=== PATIENT | female | born 1945 | race Caucasian/White ===

== ENCOUNTER 2018-01-24 08:01 | Day surgery (SDC) | payer MEDICARE, OTHER ==
[2018-01-21 14:28] LABS: BASOPHILS # (AUTO) 0.1 X10'3 (0-0.2); BASOPHILS % (AUTO) 0.6 % (0-1); EOSINOPHILS # (AUTO) 0.6 X10'3 (0-0.9); EOSINOPHILS % (AUTO) 5.6 % (0-6); LYMPHOCYTES # (AUTO) 1.4 X10'3 (1.1-4.8); LYMPHOCYTES % (AUTO) 14.2 % (21-51); MEAN CORPUSCULAR HEMOGLOBIN 30.5 PG (27.0-31.0); MEAN CORPUSCULAR HGB CONC 33.5 % (33.0-36.5); MEAN CORPUSCULAR VOLUME 91.2 FL (78-98); MEAN PLATELET VOLUME 8.9 FL (7.4-10.4); MONOCYTES # (AUTO) 0.6 X10'3 (0-0.9); MONOCYTES % (AUTO) 5.7 % (2-12); NEUTROPHILS # (AUTO) 7.4 X10'3 (1.8-7.7); NEUTROPHILS % (AUTO) 73.9 % (42-75); PRE OP HEMATOCRIT 43.3 % (35.0-45.0); PRE OP HEMOGLOBIN 14.5 g/dL (12.0-16.0); PRE OP PLATELET COUNT 329 X10'3 (140-440); RED BLOOD COUNT 4.75 X10'6 (4.20-5.60); RED CELL DISTRIBUTION WIDTH 14.2 % (11.5-14.5)
[2018-01-21 14:45] LABS: ALBUMIN 3.6 G/DL (3.4-5.0); ALKALINE PHOSPHATASE 104 IU/L (46-116); BLOOD UREA NITROGEN 17 MG/DL (7-18); BUN/CREATININE RATIO 23.6 (6.6-38.0); CALCIUM 8.9 MG/DL (8.5-10.1); CHLORIDE 106 MMOL/L (99-107); CREATININE 0.72 MG/DL (0.40-0.90); PRE OP ALT 36 U/L (30-65); PRE OP ANION GAP 10 (8-16); PRE OP AST 21 U/L (10-37); PRE OP BILIRUB, TOTAL 0.7 MG/DL (0.0-1.0); PRE OP GLUCOSE 112 MG/DL (70-104); PRE OP POTASSIUM 3.8 MMOL/L (3.4-5.1); PRE OP SODIUM 142 MMOL/L (135-145); TOTAL PROTEIN 7.1 G/DL (6.4-8.2); eGFR 80 ML/MIN
[2018-01-21 15:01] LABS: PRE OP PROTIME 10.7 SECONDS (9.0-12.0)
[~2018-01-24] VITALS: Ht 165.1 cm; Wt 105.1 kg
[2018-01-24] VITALS (8 sets, daily range): BP systolic 106–144; BP diastolic 66–78
[~2018-01-24 08:01] MED LIST: ATOR10TA87 PO; CALC600T12 PO; CHOL400T32 PO; CITA-278 PO; COU5T PO; COU7.5T PO; DILT120C10 PO; DOCU-20 PO; FERR325T39 PO; LEVO150T PO; LISI2.5T2 PO; LORA-512 PO; METH-360 PO; MULT-1085 PO; MULT-1096 PO; OMEP40CA37 PO; OXYB5TAB29 PO; OXYC-138 PO; ceFAZolin 1,000 MG/D5W 50ML IVPB Premixed bag IV ONE; famotidine 20mg tablet PO ONE; ringers solution, lacted 1,000 ML IV SCH
[2018-01-24] MEDS ORDERED: cefazolin/dext.iso 2gm/100ml 100 ML IV ONE (09:05)
[2018-01-24] MEDS ORDERED: DILT120C10 PO (09:25)
[2018-01-24] MEDS ORDERED: BUPIVAcaine/PF 2.5mg/ml (0.25%) 10ml vial ONE (10:54)
[2018-01-24] MEDS ORDERED: ROPIVAcaine 0.5% (5mg/ml) 30ml vial ONE (11:21)
[2018-01-24] MEDS ORDERED: midazolam 2 mg/2 ml injection ONE (12:03)
[2018-01-24] MEDS ORDERED: fentaNYL/PF 50MCG/1 ML 2ML syringe ONE (12:03)
== END 2018-01-24 13:27 | disposition home or self-care (01) ==
LOC: PAS 08:01
PROVIDERS: ATTEND Orthopaedic Surgery Hand Surgery
DX: M19.041 Primary osteoarthritis, right hand (principal); M65.331 Trigger finger, right middle finger; Z68.39 Body mass index [BMI] 39.0-39.9, adult; K21.9 Gastro-esophageal reflux disease without esophagitis; E03.9 Hypothyroidism, unspecified; E11.9 Type 2 diabetes mellitus without complications; M19.90 Unspecified osteoarthritis, unspecified site; Z87.440 Personal history of urinary (tract) infections; Z87.442 Personal history of urinary calculi; I10 Essential (primary) hypertension; I48.91 Unspecified atrial fibrillation; Z87.891 Personal history of nicotine dependence; Z88.0 Allergy status to penicillin; Z88.2 Allergy status to sulfonamides; Z98.890 Other specified postprocedural states
CPT/HCPCS: 26055; 26531; 36415; 80053; 82948; 85025; 85610; 85730; A6222; A6449; J0690; J2250; J2795; J3010; L8630; A7000; J3490; J7120

== ENCOUNTER 2018-04-09 04:01 | Emergency (ER) | payer MEDICARE, OTHER ==
[~2018-04-09] VITALS: Ht 162.6 cm; Wt 87.3 kg
[~2018-04-09 04:01] MED LIST changes: -ceFAZolin 1,000 MG/D5W 50ML IVPB Premixed bag IV ONE; -famotidine 20mg tablet PO ONE; -ringers solution, lacted 1,000 ML IV SCH
[2018-04-09] MEDS ORDERED: LIDOcaine 1.5% w/epinephrine 1:200,000 5ml ampul IJ ONE (04:45)
[2018-04-09] MEDS ORDERED: TETanus/Pertussis (Acell)/Diphther VAC/PF (Tdap-Adult) 0.5ml syringe IM ONE (04:45)
--- NOTE | 2018-04-09 04:48 | NUR ---
PER MD BYRD PT CLEARED OF TRAUMA STATUS.
[2018-04-09] MEDS ORDERED: LIDOcaine 1% w/epiNEPHrine 1:200,000 30ml vial IJ ONE (04:50)
[2018-04-09 05:30] VITALS: BP 129/61
== END 2018-04-09 05:31 | disposition home or self-care (01) ==
LOC: ER 04:01
DX: S01.81XA Laceration without foreign body of other part of head, initial encounter (principal); I48.91 Unspecified atrial fibrillation; M19.90 Unspecified osteoarthritis, unspecified site; Z98.890 Other specified postprocedural states; Z88.5 Allergy status to narcotic agent; Z88.0 Allergy status to penicillin; Z88.2 Allergy status to sulfonamides; Z79.899 Other long term (current) drug therapy; Z79.01 Long term (current) use of anticoagulants; W18.09XA Striking against other object with subsequent fall, initial encounter; Y93.89 Activity, other specified; Y92.89 Other specified places as the place of occurrence of the external cause; Y99.9 Unspecified external cause status
CPT/HCPCS: 12011; 70450; 72125; 90471; 90715; 99284; J3490

== ENCOUNTER 2019-07-11 22:55 | Emergency (ER) | payer MEDICARE, OTHER ==
[~2019-07-11] VITALS: Ht 165.1 cm; Wt 77.2 kg
[~2019-07-11 22:55] MED LIST changes: -CITA-278 PO; +CITA20TA28 PO; +OMEP40CA13 PO; -OMEP40CA37 PO
[2019-07-11 23:01] VITALS: BP 145/75
[2019-07-11] MEDS ORDERED: LIDOcaine/epinephrine/tetracaine TOPICAL sol 3 ML syringe TOP ONE (23:05)
== END 2019-07-12 00:01 | disposition home or self-care (01) ==
LOC: ER 22:55
DX: S60.445A External constriction of left ring finger, initial encounter (principal); I48.91 Unspecified atrial fibrillation; E11.9 Type 2 diabetes mellitus without complications; M19.90 Unspecified osteoarthritis, unspecified site; Z98.890 Other specified postprocedural states; Z79.01 Long term (current) use of anticoagulants; Z79.899 Other long term (current) drug therapy; Z88.5 Allergy status to narcotic agent; Z88.0 Allergy status to penicillin; Z88.2 Allergy status to sulfonamides; X58.XXXA Exposure to other specified factors, initial encounter; Y93.89 Activity, other specified; Y92.89 Other specified places as the place of occurrence of the external cause; Y99.9 Unspecified external cause status
CPT/HCPCS: 99283

== ENCOUNTER 2021-12-01 06:38 | Day surgery (SDC) | payer MEDICARE, OTHER ==
[2021-12-01] VITALS (9 sets, daily range): BP systolic 117–134; BP diastolic 56–98
[~2021-12-01] VITALS: Ht 165.1 cm; Wt 77.9 kg
[~2021-12-01 06:38] MED LIST changes: -CALC600T12 PO; +CALC600T35 PO; -COU5T PO; -DOCU-20 PO; +DOCU-348 PO; +LISI2.5T14 PO; -LISI2.5T2 PO; -MULT-1096 PO; +MULT-1166 PO; -OMEP40CA13 PO; +OMEP40CA21 PO; +WARF-113 PO
[2021-12-01] MEDS ORDERED: normal saline 1,000 ML IV SCH (07:00)
[2021-12-01] MEDS ORDERED: diphenhydrAMINE 25mg capsule PO PRN (07:00)
[2021-12-01] MEDS ORDERED: METF-438 (07:11)
[2021-12-01] MEDS ORDERED: LAN0.125T (07:11)
[2021-12-01] MEDS ORDERED: AMIT10TA6 PO (07:11)
[2021-12-01] MEDS ORDERED: LEVO137T2 (07:11)
[2021-12-01 07:40] LABS: BASOPHILS # (AUTO) 0.1 X10'3 (0-0.2); EOSINOPHILS # (AUTO) 0.4 X10'3 (0-0.9); EOSINOPHILS % (AUTO) 4.7 % (0-6); HEMATOCRIT 43.8 % (35.0-45.0); HEMOGLOBIN 14.7 g/dl (12.0-16.0); LYMPHOCYTES % (AUTO) 22.5 % (21-51); MEAN CORPUSCULAR HEMOGLOBIN 30.8 PG (27.0-31.0); MEAN CORPUSCULAR HGB CONC 33.6 g/dL (33.0-36.5); MEAN CORPUSCULAR VOLUME 91.6 FL (78-98); MEAN PLATELET VOLUME 8.9 FL (7.4-10.4); MONOCYTES # (AUTO) 0.5 X10'3 (0-0.9); MONOCYTES % (AUTO) 6.1 % (2-12); NEUTROPHILS # (AUTO) 5.8 X10'3 (1.8-7.7); NEUTROPHILS % (AUTO) 65.7 % (42-75); PLATELET COUNT 311 X10'3 (140-440); RED BLOOD COUNT 4.78 X10'6 (4.20-5.60); WHITE BLOOD COUNT 8.8 X10'3 (4.5-11.0)
[2021-12-01 07:49] LABS: ALBUMIN 4.2 G/DL (3.4-5.0); ANION GAP 15 (8-16); BLOOD UREA NITROGEN 20 MG/DL (7-18); BUN/CREATININE RATIO 26.7 (6.6-38.0); CHLORIDE 104 MMOL/L (99-107); CREATININE 0.75 MG/DL (0.40-0.90); GLUCOSE 124 MG/DL (70-104); MAGNESIUM 1.4 MG/DL (1.5-2.4); POTASSIUM 3.9 MMOL/L (3.5-5.1); SODIUM 144 MMOL/L (135-145); TOTAL CARBON DIOXIDE 25.5 MMOL/L (24-32); eGFR 75 ML/MIN
[2021-12-01] MEDS ORDERED: nitroGLYCERIN-Tridil 50MG/D5W 250 ML IV ONE (08:50)
[2021-12-01] MEDS ORDERED: verapamil 2.5 mg/ml inj IV ONE (08:50)
[2021-12-01] MEDS ORDERED: heparin 1,000unit/ml 10ml vial 10 ML ONE (08:51)
[2021-12-01] MEDS ORDERED: midazolam 1 mg/ML 2ml injection ONE ×3 (08:51→10:00)
[2021-12-01] MEDS ORDERED: LIDOcaine 1%/PF 5ML 10 MG/ML VIAL ONE (08:51)
[2021-12-01] MEDS ORDERED: fentaNYL/PF 50MCG/1 ML 2ML syringe ONE (08:51)
[2021-12-01] MEDS ORDERED: iohexol 350MG/ML 100ml bottle IV ONE ×3 (08:51→09:45)
[2021-12-01] MEDS ORDERED: normal saline 1000ml 1,000 ML IV SCH (11:50)
[2021-12-01] MEDS ORDERED: proCHLORperazine 10 MG/2 ml inj IV PRN (11:50)
[2021-12-01] MEDS ORDERED: ondansetron/PF 4mg/2ml inj IV PRN (11:50)
[2021-12-01] MEDS ORDERED: HYDROcodone/acetaminophen 5mg/325mg tablet PO PRN (12:15)
[2021-12-01] MEDS ORDERED: HYDROcodone/acetaminophen 10/325mg tab PO PRN (12:15)
[2021-12-01] MEDS ORDERED: ketorolac trometh. 30mg/ml inj. IV ONE (12:20)
[2021-12-01] MEDS ORDERED: oxyCODONE SR 10mg (sust. release) tab PO ONE (12:20)
[2021-12-01] MEDS ORDERED: ketorolac tromethamine 15mg/ml inj. IV ONE (12:30)
== END 2021-12-01 14:15 | disposition home or self-care (01) ==
LOC: SSTAY O 06:38
PROVIDERS: ATTEND Internal Medicine Cardiovascular Disease
DX: R07.89 Other chest pain (principal); I35.0 Nonrheumatic aortic (valve) stenosis; I27.20 Pulmonary hypertension, unspecified; I48.91 Unspecified atrial fibrillation; E78.5 Hyperlipidemia, unspecified; I10 Essential (primary) hypertension; E11.9 Type 2 diabetes mellitus without complications; Z79.899 Other long term (current) drug therapy; Z98.890 Other specified postprocedural states; Z87.891 Personal history of nicotine dependence
CPT/HCPCS: 36415; 80048; 82948; 83735; 85025; 85610; 93005; 93460; 99152; 99153; A6258; C1751; C1760; C1769; C1894; J1644; J1885; J2250; J3010; J3490; J7030; Q0163; Q9967; A4620; A5120

== ENCOUNTER 2022-01-03 09:57 | Outpatient (CLI) | payer MEDICARE, OTHER ==
[~2022-01-03] VITALS: Ht 165.1 cm; Wt 77.1 kg
[~2022-01-03 09:57] MED LIST changes: +AMIT10TA6 PO; -COU7.5T PO; -DOCU-348 PO; +LAN0.125T; +LEVO137T2; -LEVO150T PO; +METF-438; -METH-360 PO; -MULT-1166 PO; -OXYC-138 PO; -WARF-113 PO
[2022-01-03] MEDS ORDERED: IODIXANOL 320 MG/ML INFUS..BTL 100ML IV ONE (10:45)
[2022-01-03 10:53] LABS: BASOPHILS # (AUTO) 0.1 X10'3 (0-0.2); BASOPHILS % (AUTO) 0.7 % (0-1); EOSINOPHILS # (AUTO) 0.4 X10'3 (0-0.9); HEMATOCRIT 39.4 % (35.0-45.0); HEMOGLOBIN 13.3 g/dl (12.0-16.0); LYMPHOCYTES # (AUTO) 1.4 X10'3 (1.1-4.8); MEAN CORPUSCULAR HGB CONC 33.6 g/dL (33.0-36.5); MEAN CORPUSCULAR VOLUME 92.3 FL (78-98); MEAN PLATELET VOLUME 8.7 FL (7.4-10.4); MONOCYTES # (AUTO) 0.5 X10'3 (0-0.9); MONOCYTES % (AUTO) 7.3 % (2-12); NEUTROPHILS # (AUTO) 4.7 X10'3 (1.8-7.7); PLATELET COUNT 265 X10'3 (140-440); RED BLOOD COUNT 4.27 X10'6 (4.20-5.60); RED CELL DISTRIBUTION WIDTH 13.9 % (11.5-14.5); WHITE BLOOD COUNT 7.1 X10'3 (4.5-11.0)
[2022-01-03 11:06] LABS: APTT 27 SECONDS (22-32)
[2022-01-03 11:07] LABS: ALANINE AMINOTRANSFERASE 60 U/L (12-78); ALBUMIN 3.4 G/DL (3.4-5.0); ALBUMIN/GLOBULIN RATIO 1.1 (1.1-1.5); ALKALINE PHOSPHATASE 86 IU/L (46-116); ANION GAP 9 (8-16); ASPARTATE AMINO TRANSFERASE 34 U/L (10-37); BILIRUBIN,TOTAL 0.7 MG/DL (0.1-1.0); BLOOD UREA NITROGEN 20 MG/DL (7-18); BUN/CREATININE RATIO 31.7 (6.6-38.0); CALCIUM 8.7 MG/DL (8.5-10.1); CHLORIDE 104 MMOL/L (99-107); CREATININE 0.63 MG/DL (0.40-0.90); GLUCOSE 169 MG/DL (70-104); POTASSIUM 3.6 MMOL/L (3.5-5.1); SODIUM 139 MMOL/L (135-145); TOTAL CARBON DIOXIDE 26.4 MMOL/L (24-32); TOTAL PROTEIN 6.4 G/DL (6.4-8.2); eGFR > 90 ML/MIN
[2022-01-03] MEDS ORDERED: albuterol 2.5 MG/3 ML nebule NEB PRN (13:00)
[2022-01-03 13:06] LABS: ABG BASE EXCESS -1.8 mmol/L (-2.0-2.0); ABG HCO3 21.6 mmol/L (22.0-26.0); ABG OXYGEN SATURATION 96.5 % (94-97); ABG PCO2 (T) 32.7 mmHg (32.0-45.0); ABG PO2 (T) 94.7 mmHg (75.0-100.0); FCOHb 0.4 % (0.0-3.9); FMetHb 0.3 % (0.0-1.5); FO2Hb 95.8 % (94-97); TOTAL HEMOGLOBIN 13.3 G/dl (12.0-16.0)
== END 2022-01-03 23:59 | disposition home or self-care (01) ==
LOC: RAD 09:57
PROVIDERS: ATTEND Internal Medicine Cardiovascular Disease
DX: I35.0 Nonrheumatic aortic (valve) stenosis (principal); R06.02 Shortness of breath; I65.29 Occlusion and stenosis of unspecified carotid artery; Z79.899 Other long term (current) drug therapy; Z90.49 Acquired absence of other specified parts of digestive tract; K57.30 Diverticulosis of large intestine without perforation or abscess without bleeding; N28.1 Cyst of kidney, acquired; R91.1 Solitary pulmonary nodule; Z98.890 Other specified postprocedural states
CPT/HCPCS: 36415; 36600; 71046; 71275; 74174; 80053; 82803; 85018; 85025; 85610; 85730; 87811; 94060; 94727; 94729; J3490; Q9967; 94760

== ENCOUNTER 2022-02-08 08:16 | Inpatient (IN) | payer MEDICARE, OTHER ==
[2022-02-05 11:30] LABS: BASOPHILS # (AUTO) 0.1 X10'3 (0-0.2); BASOPHILS % (AUTO) 0.6 % (0-1); EOSINOPHILS # (AUTO) 0.4 X10'3 (0-0.9); EOSINOPHILS % (AUTO) 4.5 % (0-6); LYMPHOCYTES # (AUTO) 1.9 X10'3 (1.1-4.8); LYMPHOCYTES % (AUTO) 22.7 % (21-51); MEAN CORPUSCULAR HEMOGLOBIN 30.8 PG (27.0-31.0); MEAN CORPUSCULAR HGB CONC 33.9 g/dL (33.0-36.5); MEAN CORPUSCULAR VOLUME 90.8 FL (78-98); MEAN PLATELET VOLUME 8.3 FL (7.4-10.4); MONOCYTES # (AUTO) 0.7 X10'3 (0-0.9); NEUTROPHILS # (AUTO) 5.4 X10'3 (1.8-7.7); NEUTROPHILS % (AUTO) 64.2 % (42-75); PRE OP HEMATOCRIT 41.7 % (35.0-45.0); PRE OP HEMOGLOBIN 14.1 g/dL (12.0-16.0); PRE OP PLATELET COUNT 297 X10'3 (140-440); RED CELL DISTRIBUTION WIDTH 13.2 % (11.5-14.5)
[2022-02-05 11:33] LABS: HEMOGLOBIN A1C 5.7 % (4.5-6.2)
[2022-02-05 11:39] LABS: PRE OP PROTIME 10.8 SECONDS (9.0-12.0)
[2022-02-05 11:41] LABS: CLARITY,URINE CLOUDY (Clear); COLOR,URINE YELLOW (Yellow); GLUCOSE, URINE 250 mg/dl (Neg); KETONES,URINE TRACE mg/dl (Neg); LEUKOCYTE ESTERASE ,URINE NEGATIVE (Neg); NITRITES, URINE NEGATIVE (Neg); OCCULT BLOOD,URINE NEGATIVE (Neg); PROTEIN,URINE NEGATIVE (Neg); UROBILINOGEN,URINE 0.2 E.U/dL (0.2-1.0)
[2022-02-05 11:47] LABS: UA COLLECTION TYPE CLN CATCH MIDSTREAM
[2022-02-05 11:48] LABS: HYALINE CASTS 0-3 /LPF (NEGATIVE); MUCUS STRANDS MANY /LPF (Neg); SQUAMOUS EPITHELIAL CELL,UR FEW /LPF (FEW)
[2022-02-05 11:51] LABS: BACTERIA,URINE FEW /HPF (Neg); RBC,URINE 0-2 /HPF (0-2); WBC,URINE 0-4 /HPF (0-4)
[2022-02-05 11:52] LABS: ALBUMIN 3.6 G/DL (3.4-5.0); ALBUMIN/GLOBULIN RATIO 1.1 (1.1-1.5); ALKALINE PHOSPHATASE 83 IU/L (46-116); BLOOD UREA NITROGEN 17 MG/DL (7-18); BUN/CREATININE RATIO 25.4 (6.6-38.0); CALCIUM 9.3 MG/DL (8.5-10.1); CHLORIDE 105 MMOL/L (99-107); CREATININE 0.67 MG/DL (0.40-0.90); PRE OP ALT 48 U/L (30-65); PRE OP ANION GAP 8 (8-16); PRE OP AST 34 U/L (10-37); PRE OP BILIRUB, TOTAL 0.7 MG/DL (0.0-1.0); PRE OP GLUCOSE 102 MG/DL (70-104); PRE OP POTASSIUM 3.8 MMOL/L (3.4-5.1); PRE OP SODIUM 140 MMOL/L (135-145); TOTAL CARBON DIOXIDE 26.9 MMOL/L (24-32); TOTAL PROTEIN 6.8 G/DL (6.4-8.2); eGFR 86 ML/MIN
[2022-02-08] VITALS (20 sets, daily range): BP systolic 108–162; BP diastolic 54–82
[~2022-02-08] VITALS: Ht 162.6 cm; Wt 79.0 kg
[~2022-02-08 08:16] MED LIST changes: +ALBU18HF2 PO; +CHOL100046 PO; -CHOL400T32 PO; -CITA20TA28 PO; +DOCU100C40 PO; +ESCI20TA39 PO; +KRILL OIL PO; -LAN0.125T; +LAN0.125T PO; -LEVO137T2; +LEVO137T2 PO; -METF-438; +METF-438 PO; +OXYC10TA47 PO; +REMIFENTANIL (Ultiva) 1 MG VIAL IV ONE; +aspirin 325mg tablet, delayed-release (Ecotrin) PO ONE; +famotidine 20mg tablet PO ONE; +nitroPRUSSIDE (NIPRIDE) (200MCG/ML) 100ML Drip IV SCH; +ondansetron/PF 4mg/2ml inj IV PRN; +protamine sulfate 10mg/ml inj. ONE; +ringers solution, lacted 1,000 ML IV SCH; +vancomycin 1,500 MG in NS 300ml IV soln IV ONE
[2022-02-08] MEDS: phenylephrine inj 50 MG in normal saline 250ml IV solN IV SCH (09:57)
[2022-02-08] MEDS ORDERED: ondansetron/PF 4mg/2ml inj IV PRN ×2 (10:10→12:05)
[2022-02-08] MEDS ORDERED: ringers solution, lacted 1,000 ML IV SCH (10:10)
[2022-02-08] MEDS ORDERED: morphine 2 MG/ML inj. syringe IV PRN (10:10)
[2022-02-08] MEDS ORDERED: meperidine/PF 25mg/ml syringe IV PRN ×3 (10:10)
[2022-02-08] MEDS ORDERED: morphine 4 MG/ML inj SYRINge IV PRN (10:10)
[2022-02-08] MEDS ORDERED: proCHLORperazine 10 MG/2 ml inj IV PRN ×2 (10:10→12:05)
[2022-02-08] MEDS ORDERED: heparin 1,000unit/ml 10ml vial 10 ML ONE (10:31)
[2022-02-08] MEDS ORDERED: propofol inj 20 ML IV ONE (10:31)
[2022-02-08] MEDS ORDERED: midazolam 1 mg/ML 2ml injection ONE (10:31)
[2022-02-08] MEDS ORDERED: heparin 1,000 UNITS/NS 500ml 1,500 ML ONE (10:36)
[2022-02-08] MEDS ORDERED: iohexol 350 MG/ML 50ML vial IV ONE (10:36)
[2022-02-08] MEDS ORDERED: LIDOcaine 1% 30ml preserv. free vial ONE (10:36)
[2022-02-08] MEDS ORDERED: iohexol 350MG/ML 100ml bottle IV ONE (10:36)
[2022-02-08] MEDS ORDERED: albuterol 2.5 MG/3 ML nebule NEB PRN (11:25)
[2022-02-08] MEDS ORDERED: OXYcodone immediate-release 10MG tablet PO PRN (11:25)
[2022-02-08] MEDS ORDERED: docusate sod 100mg capsule PO PRN ×2 (11:25→12:05)
[2022-02-08] MEDS ORDERED: magnesium 4gm in 100ml NS 100 ML IV PRN (12:05)
[2022-02-08] MEDS ORDERED: ALPRAZolam 0.25mg tablet PO PRN (12:05)
[2022-02-08] MEDS ORDERED: potassium Cl 40MEQ/1/2NS 520ml 520 ML IV PRN (12:05)
[2022-02-08] MEDS ORDERED: potassium Cl 40MEQ/270ML bag 250 ML IV PRN (12:05)
[2022-02-08] MEDS ORDERED: acetaminophen 325mg tablet PO PRN (12:05)
[2022-02-08] MEDS ORDERED: potassium Cl 20 mEq SR tablet PO PRN (12:05)
[2022-02-08] MEDS ORDERED: diphenhydrAMINE 25mg capsule PO PRN (12:05)
[2022-02-08] MEDS ORDERED: labetalol 20mg/4ml (5mg/ml) syringe IV PRN (12:05)
[2022-02-08] MEDS ORDERED: pantoprazole 40mg Tablet.DR PO PRN (12:05)
[2022-02-08] MEDS ORDERED: potassium Cl 20mEq/100mL bag 100 ML IV PRN (12:05)
[2022-02-08] MEDS ORDERED: potassium CL 10mEq/100ml bag 100 ML IV PRN (12:05)
[2022-02-08] MEDS ORDERED: hydrALAZINE 20mg/ml inj. IV PRN (12:05)
[2022-02-08] MEDS ORDERED: magnesium 2GM in 50ml NS 50 ML IV PRN (12:05)
--- NOTE | 2022-02-08 12:07 | NUR ---
Received from OR via SURGICAL BED , accompanied by Anesthesiologist ASHISH and report given by Anesthesiolgist. PATIENT [id number] PIV IN LEFT UE RUNNING LR AT 100. DRIPS TAKEN DOWN 1/2 HR FOLLOWING ARRIVAL . BILATERAL GROIN SITES ARE CDI CURRENTLY. DRESSINGS DRY AND PATIENT WITH + DPS BILATERALLY. (NO DRAINAGE TO GROINS AND SOFT TO TOUCH)PATIENT WITH + NEURO CHECKS. PUSH PULLS AND RECORDS MANAGEMENT DIRECTOR ALL STRONG AND EQUAL. TONGUE MIDLINE AND VSS. WARMING MEASURES TAKEN FOR COMFORT. SCDS DONNED TO BED WELL 2 BAGS OF BELONGINGS. Addendum: 02/08/22 at 1242 by Emil Ziegler RN, RN Amended: Links added.
[2022-02-08] MEDS ORDERED: CLOP75TA34 PO (12:52)
--- NOTE | 2022-02-08 13:52 | NUR ---
95 BG POST OP Addendum: 02/08/22 at 1422 by Emil Ziegler RN RN Amended: Links added.
--- NOTE | 2022-02-08 13:57 | NUR ---
CARE OF PATIENT AND REPORT HAS BEEN CALLED. ALL QUESTIONS ANSWERED TO ACCEPTING RN. PATIENT HAS MET ALL CRITERIA FOR TRANSFER TO THE [facility] ORTHO FLOOR. VSS. DRESSINGS INTACT. BED LOW, CALL LIGHT PRESENT AND 2 RAILS UP. RN PRESENT TO ACCEPT CARE OF PATIENT. Addendum: 02/08/22 at 1422 by Emil Ziegler RN RN Amended: Links added.
--- NOTE | 2022-02-08 14:28 | NUR ---
ADDENDUM: NEUROLOGICALLY INTACT. NO DEVIATION IN TONGUE, SMILE SYMMETRICAL AND PUSH PULLS/ CORRECTIONAL SERGEANT ALL EQUAL. PATIENT VOIDED PRIOR TO LEAVING UNIT. GROIN CHECKS STILL BILATERALLY CDI AND SOFT TO TOUCH. PAIN AT 5-10 HOWEVER PATIENT STATES THIS IS HER LEVEL OF COMFORT. Addendum: 02/08/22 at 1432 by Emil Ziegler RN, RN Amended: Links added.
[2022-02-08] MEDS ORDERED: MESSAGE TO PHARMACY PO ONE (15:55)
[2022-02-08] MEDS: normal saline 1000ml 1,000 ML IV SCH ×3 (15:55→22:05)
[2022-02-08] MEDS ORDERED: DEXTROSE 15 GM of carb/4 tabs (each vial/BOTTLE has 4 tablets) PO PRN ×2 (15:55)
[2022-02-08] MEDS ORDERED: insulin Lispro (HumaLOG) vial - multi-dose SQ SCH (15:55)
[2022-02-08] MEDS ORDERED: glucagon, human recombinant 1mg kit SUBCUT PRN (15:55)
[2022-02-08] MEDS ORDERED: dextrose 50%-water 50ml dispensing syringe IV PRN ×2 (15:55)
[2022-02-08] MEDS: oxyCODONE IR 5mg (immed. release) tablet PO PRN (16:14)
[2022-02-08] MEDS: sod chloride 0.9% 10ml flush syringe IV SCH (16:15)
--- NOTE | 2022-02-08 16:40 | NUR ---
Report called to Kelley SALAS. Patient transferred to PCU room 3014A. RN at bedside. All belongings with patient on transfer.
--- NOTE | 2022-02-08 16:40 | NUR ---
Patient in room 3014a. I have received report from Tete SALAS and had the opportunity to ask questions and assume patient care. Pt bilat groin sites DCI with the exception of small area right veinous site. This area outlined. Will continue to monitor. Pt talking on phone. No distress, Call light in reach.
--- NOTE | 2022-02-08 18:15 | NUR ---
Problems reprioritized. Patient report given, questions answered & plan of care reviewed with Akhil SALAS. bedside report completed. Addendum: 02/08/22 at 1823 by Kelley Garrison RN Amended: Links added.
[2022-02-08] MEDS ORDERED: diltiazem SR 60mg capsule (twice daily) PO SCH (21:00)
[2022-02-08] MEDS ORDERED: multivitamins, therapeutics tablet PO SCH (21:00)
[2022-02-08] MEDS ORDERED: insulin glargine (Lantus) pen - multi-dose SQ SCH (21:00)
[2022-02-08] MEDS ORDERED: ESCITALOPRAM OXALATE 5 MG TABLET PO SCH (21:00)
[2022-02-08] MEDS ORDERED: loratadine 10mg tablet PO SCH (21:00)
[2022-02-08] MEDS ORDERED: amitriptyline 10mg tablet PO SCH (21:00)
[2022-02-08] MEDS: vancomycin/NS 1 GM ADD-VANTAGE 250 ML IV SCH (21:39)
[2022-02-08] MEDS: ferrous sulfate 325mg tablet PO SCH (22:06)
--- NOTE | 2022-02-08 22:21 | NUR ---
Pt Blood Sugar is 92 at 2100 PM, does not meet protocol, does not need lantus.
[2022-02-09] MEDS: sod chloride 0.9% 10ml flush syringe IV SCH ×2 (00:31→08:00)
[2022-02-09 02:00] VITALS: BP 115/45
[2022-02-09] MEDS: phenylephrine inj 50 MG in normal saline 250ml IV solN IV SCH (03:07)
--- NOTE | 2022-02-09 04:03 | NUR ---
Pt 2100 BS was 92, this nurse feel not comfort for her blood sugar, it maybe be low, checked it at 03:50 AM, it was 171, continue to closely monitor her glucose.
--- NOTE | 2022-02-09 04:27 | NUR ---
Patient Heart rate is around 50, patient stated at home she took Diltiazem 240 mg bed time, 120 mg day time, current at hospital is on Diltiazem 240 mg PO BID, will let AM nurse notified MD to see if can decrease the AM lakhani from 240 mg to 120 mg to prevent her Heart Rate too low.
[2022-02-09] MEDS: normal saline 1000ml 1,000 ML IV SCH (05:18)
--- NOTE | 2022-02-09 06:22 | NUR ---
Patient in room PCU 3014. I have received report from Akhil SALAS and had the opportunity to ask questions and assume patient care. bedside report completed. Pt sleeping, No distress, Call light in reach. Addendum: 02/09/22 at 0623 by Kelley Garrison RN Amended: Links added.
[2022-02-09 06:39] LABS: BASOPHILS % (AUTO) 0.6 % (0-1); EOSINOPHILS # (AUTO) 0.1 X10'3 (0-0.9); EOSINOPHILS % (AUTO) 2.1 % (0-6); HEMATOCRIT 36.6 % (35.0-45.0); HEMOGLOBIN 12.5 g/dl (12.0-16.0); LYMPHOCYTES # (AUTO) 0.4 X10'3 (1.1-4.8); LYMPHOCYTES % (AUTO) 6.1 % (21-51); MEAN CORPUSCULAR HEMOGLOBIN 31.1 PG (27.0-31.0); MEAN CORPUSCULAR HGB CONC 34.1 g/dL (33.0-36.5); MEAN CORPUSCULAR VOLUME 91.4 FL (78-98); MEAN PLATELET VOLUME 8.3 FL (7.4-10.4); MONOCYTES # (AUTO) 0.4 X10'3 (0-0.9); MONOCYTES % (AUTO) 6.4 % (2-12); NEUTROPHILS # (AUTO) 5.9 X10'3 (1.8-7.7); NEUTROPHILS % (AUTO) 84.8 % (42-75); PLATELET COUNT 172 X10'3 (140-440); RED BLOOD COUNT 4.01 X10'6 (4.20-5.60); RED CELL DISTRIBUTION WIDTH 13.1 % (11.5-14.5); WHITE BLOOD COUNT 6.9 X10'3 (4.5-11.0)
[2022-02-09 06:55] LABS: ALANINE AMINOTRANSFERASE 255 U/L (12-78); ALBUMIN/GLOBULIN RATIO 1.2 (1.1-1.5); ALKALINE PHOSPHATASE 108 IU/L (46-116); ANION GAP 9 (8-16); ASPARTATE AMINO TRANSFERASE 355 U/L (10-37); BILIRUBIN,TOTAL 1.4 MG/DL (0.1-1.0); BLOOD UREA NITROGEN 15 MG/DL (7-18); BUN/CREATININE RATIO 28.3 (6.6-38.0); CALCIUM 8.1 MG/DL (8.5-10.1); CHLORIDE 104 MMOL/L (99-107); CREATININE 0.53 MG/DL (0.40-0.90); GLUCOSE 179 MG/DL (70-104); MAGNESIUM 1.5 MG/DL (1.5-2.4); POTASSIUM 3.7 MMOL/L (3.5-5.1); SODIUM 138 MMOL/L (135-145); TOTAL CARBON DIOXIDE 24.9 MMOL/L (24-32); TOTAL PROTEIN 5.5 G/DL (6.4-8.2); eGFR > 90 ML/MIN
[2022-02-09] MEDS ORDERED: levoTHYROXINE 112mcg tablet PO SCH (07:00)
[2022-02-09] MEDS ORDERED: levoTHYROXINE 25mcg tablet PO SCH (07:00)
[2022-02-09] MEDS ORDERED: KRILL OIL PO SCH (08:00)
[2022-02-09] MEDS ORDERED: diltiazem SR 60mg capsule (twice daily) PO SCH (08:00)
[2022-02-09] MEDS ORDERED: digoxin 125mcg (0.125mg) tablet PO SCH (08:00)
[2022-02-09] MEDS ORDERED: atorvastatin 10mg tablet PO SCH (08:00)
[2022-02-09] MEDS ORDERED: lisinopril 2.5mg tablet PO SCH (08:00)
[2022-02-09] MEDS ORDERED: cholecalciferol (vitamin D3) 1,000 unit (25mcg) tablet PO SCH (08:00)
[2022-02-09] MEDS ORDERED: pantoprazole 40mg Tablet.DR PO SCH (08:00)
[2022-02-09] MEDS ORDERED: clopidogrel 75mg tablet PO SCH (08:00)
[2022-02-09] MEDS ORDERED: calcium carbonate 500mg tablet PO SCH (08:00)
[2022-02-09] MEDS ORDERED: oxybutynin 5mg tablet PO SCH (08:00)
[2022-02-09] MEDS: vancomycin/NS 1 GM ADD-VANTAGE 250 ML IV SCH (08:08)
[2022-02-09] MEDS: ferrous sulfate 325mg tablet PO SCH (08:09)
[2022-02-09] MEDS: oxyCODONE IR 5mg (immed. release) tablet PO PRN (08:22)
--- NOTE | 2022-02-09 11:04 | NUR ---
ambulated Pt 300 ft around unit. pt tolerated well. no new drsg drainage noted.
[2022-02-09 11:41] VITALS: BP 115/52
--- NOTE | 2022-02-09 13:50 | NUR ---
All written and verbal orders for D/C given. All questions answered. Pt states she had all belongings. All medication and appointments reviewed. DRSG removed from left groin site. New DRSG applied to right groin site. Removed pt piv, cannula intact. Pt left hospital via W/C home with family. Addendum: 02/09/22 at 1403 by Kelley Garrison RN Amended: Links added.
== END 2022-02-09 14:23 | disposition home or self-care (01) | DRG 266 ==
LOC: UNDOADMIN 08:16 → PAS IN 08:16 → PCU 3S 16:44
PROVIDERS: ADMIT Internal Medicine Cardiovascular Disease; ATTEND Internal Medicine Cardiovascular Disease
PROC: B41D1ZZ Fluoroscopy of Aorta and Bilateral Lower Extremity Arteries using Low Osmolar Contrast (ICD-10-PCS; 2022-02-08)
PROC: 02RF38Z Replacement of Aortic Valve with Zooplastic Tissue, Percutaneous Approach (ICD-10-PCS; principal; 2022-02-08 10:46)
DX: I35.0 Nonrheumatic aortic (valve) stenosis (principal); Z00.6 Encounter for examination for normal comparison and control in clinical research program; I50.33 Acute on chronic diastolic (congestive) heart failure; E78.5 Hyperlipidemia, unspecified; I11.0 Hypertensive heart disease with heart failure; I48.91 Unspecified atrial fibrillation; Z98.84 Bariatric surgery status
CPT/HCPCS: 33361; 36415; 71045; 71046; 76937; 80053; 81001; 82948; 83036; 83735; 83880; 84443; 85025; 85347; 85610; 85730; 86885; 86900; 86901; 86920; 87081; 93005; 93308; A4618; A6258; A6402; A6449; C1756; C1760; C1769; C1894; G0378; J0360; J1644; J1815; J2175; J2250; J2270; J2370; J2704; J2720; J3370; J3490; J7030; J7040; J7050; J7120; Q9967

== ENCOUNTER 2022-09-23 21:30 | Emergency (ER) | payer MEDICARE, OTHER ==
[~2022-09-23] VITALS: Ht 162.6 cm; Wt 69.1 kg
[~2022-09-23 21:30] MED LIST changes: +CLOP75TA34 PO; -REMIFENTANIL (Ultiva) 1 MG VIAL IV ONE; -aspirin 325mg tablet, delayed-release (Ecotrin) PO ONE; -famotidine 20mg tablet PO ONE; -nitroPRUSSIDE (NIPRIDE) (200MCG/ML) 100ML Drip IV SCH; -ondansetron/PF 4mg/2ml inj IV PRN; -protamine sulfate 10mg/ml inj. ONE; -ringers solution, lacted 1,000 ML IV SCH; -vancomycin 1,500 MG in NS 300ml IV soln IV ONE
[2022-09-23 21:48] LABS: BASOPHILS # (AUTO) 0.1 X10'3 (0-0.2); BASOPHILS % (AUTO) 0.8 % (0-1); EOSINOPHILS # (AUTO) 0.8 X10'3 (0-0.9); EOSINOPHILS % (AUTO) 6.5 % (0-6); HEMOGLOBIN 14.1 g/dl (12.0-16.0); LYMPHOCYTES # (AUTO) 2.4 X10'3 (1.1-4.8); LYMPHOCYTES % (AUTO) 18.8 % (21-51); MEAN CORPUSCULAR HEMOGLOBIN 29.5 PG (27.0-31.0); MEAN CORPUSCULAR HGB CONC 32.9 g/dL (33.0-36.5); MEAN CORPUSCULAR VOLUME 89.9 FL (78-98); MONOCYTES % (AUTO) 7.8 % (2-12); NEUTROPHILS # (AUTO) 8.3 X10'3 (1.8-7.7); NEUTROPHILS % (AUTO) 66.1 % (42-75); PLATELET COUNT 354 X10'3 (140-440); RED BLOOD COUNT 4.78 X10'6 (4.20-5.60); RED CELL DISTRIBUTION WIDTH 14.2 % (11.5-14.5); WHITE BLOOD COUNT 12.6 X10'3 (4.5-11.0)
[2022-09-23] MEDS ORDERED: diltiazem 5mg/ml 5ml inj. IV ONE (21:55)
[2022-09-23 22:05] LABS: ALANINE AMINOTRANSFERASE 42 U/L (12-78); ALBUMIN 3.5 G/DL (3.4-5.0); ALKALINE PHOSPHATASE 85 IU/L (46-116); ANION GAP 14 (8-16); ASPARTATE AMINO TRANSFERASE 32 U/L (10-37); BILIRUBIN,TOTAL 0.4 MG/DL (0.1-1.0); BLOOD UREA NITROGEN 18 MG/DL (7-18); BUN/CREATININE RATIO 22.5 (10.0-20.0); CALCIUM 8.8 MG/DL (8.5-10.1); CHLORIDE 108 MMOL/L (99-107); GLUCOSE 111 MG/DL (70-104); POTASSIUM 3.6 MMOL/L (3.5-5.1); SODIUM 144 MMOL/L (135-145); TOTAL CARBON DIOXIDE 22.2 MMOL/L (24-32); eGFR 70 ML/MIN
[2022-09-24] MEDS ORDERED: diltiazem 5mg/ml 5ml inj. IV ONE ×2 (00:10→03:00)
[2022-09-24 04:45] VITALS: BP 116/57
== END 2022-09-24 05:06 | disposition home or self-care (01) ==
LOC: ER 21:31
DX: I48.20 Chronic atrial fibrillation, unspecified (principal)
CPT/HCPCS: 36415; 71045; 80053; 80162; 83880; 84484; 85025; 93005; 96374; 96376; 99285; J3490; J7030

== ENCOUNTER 2022-12-07 07:57 | Day surgery (SDC) | payer MEDICARE, OTHER ==
[2022-12-07] VITALS (8 sets, daily range): BP systolic 103–118; BP diastolic 53–67; PULSE 72–93; RESP 12–16; TEMP 97.7; O2SAT 95–100
[~2022-12-07] VITALS: Ht 162.6 cm; Wt 66.1 kg
[2022-12-07] MEDS ORDERED: normal saline 1000ml 1,000 ML IV SCH (08:20)
[2022-12-07] MEDS ORDERED: MIDAZolam 1mg/ml 10ml vial IV ONE (08:20)
[2022-12-07] MEDS ORDERED: fentaNYL/PF 50MCG/1 ML 2ML syringe IV ONE (08:20)
[2022-12-07] MEDS ORDERED: METO-395 PO (08:25)
[2022-12-07] MEDS ORDERED: APIX5TAB3 PO (08:25)
[2022-12-07] MEDS ORDERED: ALEN70TA15 PO (08:25)
[2022-12-07] MEDS ORDERED: AMI200T PO (08:25)
[2022-12-07 09:51] LABS: BASOPHILS # (AUTO) 0.1 X10'3 (0-0.2); BASOPHILS % (AUTO) 1.3 % (0-1); EOSINOPHILS # (AUTO) 0.2 X10'3 (0-0.9); EOSINOPHILS % (AUTO) 3.1 % (0-6); HEMATOCRIT 40.3 % (35.0-45.0); HEMOGLOBIN 13.2 g/dl (12.0-16.0); LYMPHOCYTES # (AUTO) 0.9 X10'3 (1.1-4.8); MEAN CORPUSCULAR HEMOGLOBIN 29.6 PG (27.0-31.0); MEAN CORPUSCULAR HGB CONC 32.7 g/dL (33.0-36.5); MEAN CORPUSCULAR VOLUME 90.6 FL (78-98); MEAN PLATELET VOLUME 8.4 FL (7.4-10.4); MONOCYTES # (AUTO) 0.4 X10'3 (0-0.9); MONOCYTES % (AUTO) 5.1 % (2-12); NEUTROPHILS # (AUTO) 6.1 X10'3 (1.8-7.7); NEUTROPHILS % (AUTO) 78.5 % (42-75); PLATELET COUNT 264 X10'3 (140-440); RED BLOOD COUNT 4.45 X10'6 (4.20-5.60); RED CELL DISTRIBUTION WIDTH 15.1 % (11.5-14.5); WHITE BLOOD COUNT 7.7 X10'3 (4.5-11.0)
[2022-12-07 10:00] LABS: PROTHROMBIN TIME 11.2 SECONDS (9.0-12.0)
[2022-12-07 10:02] LABS: ALBUMIN 3.5 G/DL (3.4-5.0); ANION GAP 10 (8-16); BLOOD UREA NITROGEN 25 MG/DL (7-18); BUN/CREATININE RATIO 36.8 (10.0-20.0); CALCIUM 8.8 MG/DL (8.5-10.1); CHLORIDE 105 MMOL/L (99-107); CREATININE 0.68 MG/DL (0.40-0.90); GLUCOSE 104 MG/DL (70-104); MAGNESIUM 1.3 MG/DL (1.5-2.4); POTASSIUM 3.8 MMOL/L (3.5-5.1); SODIUM 140 MMOL/L (135-145); TOTAL CARBON DIOXIDE 24.9 MMOL/L (24-32); eCRCL 61 ML/MIN; eGFR 84 ML/MIN
== END 2022-12-07 13:00 | disposition home or self-care (01) ==
LOC: SSTAY O 07:57
PROVIDERS: ATTEND Internal Medicine Cardiovascular Disease
DX: I48.4 Atypical atrial flutter (principal); E78.5 Hyperlipidemia, unspecified; G89.29 Other chronic pain; E66.9 Obesity, unspecified; Z68.25 Body mass index [BMI] 25.0-25.9, adult; K21.9 Gastro-esophageal reflux disease without esophagitis; F41.9 Anxiety disorder, unspecified; F32.A Depression, unspecified; M19.90 Unspecified osteoarthritis, unspecified site; E03.9 Hypothyroidism, unspecified; D64.9 Anemia, unspecified; E11.22 Type 2 diabetes mellitus with diabetic chronic kidney disease; I12.9 Hypertensive chronic kidney disease with stage 1 through stage 4 chronic kidney disease, or unspecified chronic kidney disease; N18.9 Chronic kidney disease, unspecified; G51.0 Bell's palsy; Z79.899 Other long term (current) drug therapy; Z98.84 Bariatric surgery status; Z88.0 Allergy status to penicillin; Z88.5 Allergy status to narcotic agent; Z88.2 Allergy status to sulfonamides; Z87.440 Personal history of urinary (tract) infections; Z87.01 Personal history of pneumonia (recurrent); Z90.49 Acquired absence of other specified parts of digestive tract; Z96.643 Presence of artificial hip joint, bilateral; Z98.890 Other specified postprocedural states
CPT/HCPCS: 36415; 80048; 82948; 83735; 85025; 85610; 92960; 93005; J2250; J3010; J7030; A4620

== ENCOUNTER 2022-12-08 14:18 | Inpatient (IN) | payer MEDICARE, OTHER ==
[~2022-12-08] VITALS: Ht 162.6 cm; Wt 65.9 kg
[~2022-12-08 14:18] MED LIST changes: -ALBU18HF2 PO; +ALEN70TA15 PO; +AMI200T PO; +APIX5TAB3 PO; -CALC600T35 PO; -CLOP75TA34 PO; -FERR325T39 PO; +METO-395 PO
[2022-12-08 15:37] LABS: BASOPHILS # (AUTO) 0.1 X10'3 (0-0.2); BASOPHILS % (AUTO) 0.7 % (0-1); EOSINOPHILS # (AUTO) 0.3 X10'3 (0-0.9); EOSINOPHILS % (AUTO) 3.2 % (0-6); HEMATOCRIT 37.4 % (35.0-45.0); HEMOGLOBIN 12.4 g/dl (12.0-16.0); LYMPHOCYTES # (AUTO) 1.5 X10'3 (1.1-4.8); LYMPHOCYTES % (AUTO) 15.8 % (21-51); MEAN CORPUSCULAR HEMOGLOBIN 30.3 PG (27.0-31.0); MEAN CORPUSCULAR HGB CONC 33.1 g/dL (33.0-36.5); MEAN CORPUSCULAR VOLUME 91.4 FL (78-98); MEAN PLATELET VOLUME 8.3 FL (7.4-10.4); MONOCYTES # (AUTO) 0.6 X10'3 (0-0.9); NEUTROPHILS # (AUTO) 6.7 X10'3 (1.8-7.7); NEUTROPHILS % (AUTO) 73.3 % (42-75); PLATELET COUNT 262 X10'3 (140-440); RED BLOOD COUNT 4.09 X10'6 (4.20-5.60); RED CELL DISTRIBUTION WIDTH 15.3 % (11.5-14.5); WHITE BLOOD COUNT 9.2 X10'3 (4.5-11.0)
[2022-12-08 15:47] LABS: ALANINE AMINOTRANSFERASE 46 U/L (12-78); ALBUMIN 3.1 G/DL (3.4-5.0); ALBUMIN/GLOBULIN RATIO 1.2 (1.1-1.5); ALKALINE PHOSPHATASE 57 IU/L (46-116); ANION GAP 10 (8-16); ASPARTATE AMINO TRANSFERASE 30 U/L (10-37); BILIRUBIN,TOTAL 0.6 MG/DL (0.1-1.0); BLOOD UREA NITROGEN 22 MG/DL (7-18); CALCIUM 7.8 MG/DL (8.5-10.1); CHLORIDE 107 MMOL/L (99-107); CREATININE 0.71 MG/DL (0.40-0.90); GLUCOSE 98 MG/DL (70-104); POTASSIUM 4.2 MMOL/L (3.5-5.1); SODIUM 140 MMOL/L (135-145); TOTAL CARBON DIOXIDE 23.4 MMOL/L (24-32); TOTAL PROTEIN 5.6 G/DL (6.4-8.2); eCRCL 58 ML/MIN; eGFR 80 ML/MIN
[2022-12-08 15:56] LABS: MAGNESIUM 1.3 MG/DL (1.5-2.4); PRO BRAIN NATRIURETIC PEPTIDE 921 PG/ML (0-450)
[2022-12-08] MEDS ORDERED: magnesium 2GM in 50ml NS 50 ML IV ONE (16:00)
[2022-12-08 16:07] LABS: DIGOXIN 0.7 NG/ML (0.9-1.9)
[2022-12-08] MEDS ORDERED: magnesium hydroxide 30ml (MOM) UD suspension PO PRN (18:25)
[2022-12-08] MEDS ORDERED: magnesium 2GM in 50ml NS 50 ML IV PRN (18:25)
[2022-12-08] MEDS ORDERED: acetaminophen 325mg tablet PO PRN (18:25)
[2022-12-08] MEDS ORDERED: ondansetron/PF 4mg/2ml inj IV PRN (18:25)
[2022-12-08] MEDS ORDERED: mag hydrox/Alum hydrox/simeth 30ml oral suspension PO PRN (18:25)
[2022-12-08] MEDS ORDERED: magnesium Cl slow-release 64mg tablet PO PRN (18:25)
[2022-12-08] MEDS ORDERED: potassium Cl 40MEQ/1/2NS 520ml 520 ML IV PRN (18:25)
[2022-12-08] MEDS ORDERED: potassium Cl 20 mEq SR tablet PO PRN (18:25)
[2022-12-08] MEDS ORDERED: magnesium 4gm in 100ml NS 100 ML IV PRN (18:25)
[2022-12-08] MEDS ORDERED: lisinopril 10 MG tablet PO ONE (18:55)
[2022-12-08 19:12] LABS: BILIRUBIN,URINE NEGATIVE (Neg); GLUCOSE, URINE NEGATIVE (Neg); KETONES,URINE 15 mg/dl (Neg); LEUKOCYTE ESTERASE ,URINE TRACE (Neg); NITRITES, URINE NEGATIVE (Neg); OCCULT BLOOD,URINE NEGATIVE (Neg); PH,URINE 5.5 (4.8-8.0); PROTEIN,URINE NEGATIVE (Neg); UROBILINOGEN,URINE 0.2 E.U/dL (0.2-1.0)
[2022-12-08] MEDS ORDERED: insulin Lispro (HumaLOG) vial - multi-dose SQ SCH (19:15)
[2022-12-08] MEDS ORDERED: glucagon, human recombinant 1mg kit SUBCUT PRN (19:15)
[2022-12-08] MEDS ORDERED: dextrose 50%-water 50ml dispensing syringe IV PRN ×2 (19:15)
[2022-12-08] MEDS ORDERED: DEXTROSE 15 GM of carb/4 tabs (each vial/BOTTLE has 4 tablets) PO PRN ×2 (19:15)
[2022-12-08 19:20] LABS: UA COLLECTION TYPE CLN CATCH MIDSTREAM
[2022-12-08 19:21] LABS: CLARITY,URINE SLIGHTLY CLOUDY (Clear); COLOR,URINE DARK YELLOW (Yellow)
[2022-12-08 19:23] LABS: BACTERIA,URINE 1+ /HPF (Neg); MUCUS STRANDS MODERATE /LPF (Neg); RBC,URINE 0-2 /HPF (0-2); SQUAMOUS EPITHELIAL CELL,UR MODERATE /LPF (FEW); TRANSITIONAL EPI CELLS,URINE FEW /HPF
[2022-12-08 19:38] LABS: THYROID STIMULATING HORMONE 0.97 ulU/ml (0.34-4.50)
[2022-12-08] MEDS: K and/or MAG REPLACEMENT MC SCH (20:00)
[2022-12-08] MEDS: apixaban 5mg tablet PO SCH (20:06)
[2022-12-08] MEDS ORDERED: lisinopril 2.5mg tablet PO ONE (20:35)
[2022-12-08] MEDS: oxybutynin 5mg tablet PO SCH (20:44)
--- NOTE | 2022-12-08 20:44 | NUR ---
Patient is uncomfortable taking lisinopril dose with SBP of 104 and declines administration at this time. Pt also declined taking ditropan stating she takes it in the morning
[2022-12-08 22:30] VITALS: BP 99/55; PULSE 95; RESP 16; TEMP 97.3; O2SAT 95
[2022-12-08] MEDS: insulin glargine (Lantus) pen - multi-dose SQ SCH (23:00)
[2022-12-09] VITALS (9 sets, daily range): BP systolic 94–141; BP diastolic 54–80; PULSE 87–114; RESP 15–22; TEMP 96.8–97.7; O2SAT 94–99
--- NOTE | 2022-12-09 06:27 | NUR ---
Problems reprioritized. Patient report given, questions answered & plan of care reviewed with Annemarie. Addendum: 12/09/22 at 0686 by Jacki Sykes RN Amended: Links added.
--- NOTE | 2022-12-09 07:07 | NUR ---
Patient in room PCU 3028. I have received report from Yany SALAS and had the opportunity to ask questions and assume patient care.
[2022-12-09 07:31] LABS: BASOPHILS # (AUTO) 0.1 X10'3 (0-0.2); BASOPHILS % (AUTO) 0.7 % (0-1); EOSINOPHILS # (AUTO) 0.4 X10'3 (0-0.9); EOSINOPHILS % (AUTO) 5.8 % (0-6); HEMATOCRIT 37.2 % (35.0-45.0); HEMOGLOBIN 12.6 g/dl (12.0-16.0); LYMPHOCYTES % (AUTO) 27.7 % (21-51); MEAN CORPUSCULAR HEMOGLOBIN 30.6 PG (27.0-31.0); MEAN CORPUSCULAR HGB CONC 33.8 g/dL (33.0-36.5); MEAN CORPUSCULAR VOLUME 90.4 FL (78-98); MEAN PLATELET VOLUME 8.9 FL (7.4-10.4); MONOCYTES # (AUTO) 0.5 X10'3 (0-0.9); MONOCYTES % (AUTO) 7.2 % (2-12); NEUTROPHILS # (AUTO) 4.2 X10'3 (1.8-7.7); NEUTROPHILS % (AUTO) 58.6 % (42-75); PLATELET COUNT 230 X10'3 (140-440); RED BLOOD COUNT 4.11 X10'6 (4.20-5.60); RED CELL DISTRIBUTION WIDTH 14.9 % (11.5-14.5); WHITE BLOOD COUNT 7.1 X10'3 (4.5-11.0)
[2022-12-09 07:57] LABS: ALANINE AMINOTRANSFERASE 37 U/L (12-78); ALBUMIN 3.1 G/DL (3.4-5.0); ALBUMIN/GLOBULIN RATIO 1.2 (1.1-1.5); ALKALINE PHOSPHATASE 52 IU/L (46-116); ANION GAP 8 (8-16); ASPARTATE AMINO TRANSFERASE 24 U/L (10-37); BILIRUBIN,TOTAL 0.7 MG/DL (0.1-1.0); BLOOD UREA NITROGEN 19 MG/DL (7-18); BUN/CREATININE RATIO 36.5 (10.0-20.0); CALCIUM 8.2 MG/DL (8.5-10.1); CHLORIDE 108 MMOL/L (99-107); CREATININE 0.52 MG/DL (0.40-0.90); GLUCOSE 91 MG/DL (70-104); MAGNESIUM 1.6 MG/DL (1.5-2.4); POTASSIUM 3.1 MMOL/L (3.5-5.1); SODIUM 140 MMOL/L (135-145); TOTAL CARBON DIOXIDE 24.2 MMOL/L (24-32); TOTAL PROTEIN 5.7 G/DL (6.4-8.2); eCRCL 79 ML/MIN; eGFR > 90 ML/MIN
[2022-12-09] MEDS: metoprolol succinate 25mg (24-HOUR) SR. Tablet PO SCH (08:00)
[2022-12-09] MEDS: K and/or MAG REPLACEMENT MC SCH ×2 (08:00→20:00)
[2022-12-09 08:04] LABS: PHOSPHORUS 1.2 MG/DL (2.3-4.5)
[2022-12-09] MEDS: potassium Cl 20 mEq SR tablet PO PRN ×3 (08:21→20:50)
[2022-12-09] MEDS: atorvastatin 10mg tablet PO SCH (08:22)
[2022-12-09] MEDS: apixaban 5mg tablet PO SCH ×2 (08:22→20:50)
[2022-12-09] MEDS: pantoprazole 40mg Tablet.DR PO SCH (08:22)
[2022-12-09] MEDS: oxybutynin 5mg tablet PO SCH ×3 (08:22→20:50)
[2022-12-09] MEDS: levoTHYROXINE 112mcg tablet PO SCH (08:23)
[2022-12-09] MEDS: levoTHYROXINE 25mcg tablet PO SCH (08:24)
--- NOTE | 2022-12-09 08:34 | NUR ---
promotional table spacer Page Accepted promotional table spacer Message: Critical phos 1.2. thank you. Wafer Slicer Notified Pt. has AV disassociation. Inocente Camejo VISUAL MERCHANDISING ASSOCIATE [phone] Custom Responses: promotional table spacer Transaction number: [id number]
[2022-12-09] MEDS ORDERED: potassium phosphate inj 15 MMOL in normal saline 250ml IV soln 250 ML IV ONE ×3 (09:15→16:30)
[2022-12-09] MEDS ORDERED: OXYcodone immediate-release 10MG tablet PO PRN (09:20)
--- NOTE | 2022-12-09 09:52 | NUR ---
Spoke with Dr España resident. Gave order for a 12 lead EKG.
--- NOTE | 2022-12-09 11:32 | NUR ---
Dr Joy gave verbal order for a EKG to be done at 1400.
[2022-12-09] MEDS ORDERED: potassium phosphate inj 30 MMOL in normal saline 250ml IV soln 250 ML IV ONE (12:15)
--- NOTE | 2022-12-09 12:19 | NUR ---
Spoke with Dr Cox and Dr Joy about new order for K phose. Gave order for an additional 15 mmol and DC the 30 mmol dose.
--- NOTE | 2022-12-09 12:32 | NUR ---
Message: KAREEM ON [email or web address],, JUST TO CLARIFY, 3028A IS RECEIVING K/PHOS REPLACEMENT CURRENTLY. DO YOU WANT THE ORDER YOU JUST PLACED TO RUN ALSO? THANK YOU
--- NOTE | 2022-12-09 12:41 | NUR ---
AGREE WITH PATIENT CASE MANAGER AM ASSESSMENT
[2022-12-09] MEDS: metFORMIN 500mg tablet PO SCH (17:43)
--- NOTE | 2022-12-09 17:57 | NUR ---
DIRECTOR PHYSICAL [place] documentation: I have reviewed and agree with all interventions, assessments performed and documented by Inocente CRUZ. DIRECTOR PHYSICAL [place] Medication Administration: For this medication-pass time frame, all medication were reviewed, dispensed, administered and documented per hospital policy by Inocente CRUZ.
--- NOTE | 2022-12-09 18:19 | NUR ---
Problems reprioritized. Patient report given to Symone MULTIGRAPH OPERATOR questions answered & plan of care reviewed with .
[2022-12-09] MEDS: ESCITALOPRAM OXALATE 5 MG TABLET PO SCH (20:50)
[2022-12-09] MEDS: insulin glargine (Lantus) pen - multi-dose SQ SCH (21:00)
[2022-12-09] MEDS: oxyCODONE IR 5mg (immed. release) tablet PO PRN (23:42)
[2022-12-10] VITALS (7 sets, daily range): BP systolic 91–126; BP diastolic 55–85; PULSE 98–117; RESP 13–19; TEMP 97.2–98.3; O2SAT 96–99
--- NOTE | 2022-12-10 00:41 | NUR ---
notified that pt requesting Oxycodone (home med), currently APAP 650mg ordered PRN for pain. 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 gave new order - start Oxycodone 5mg q6hrs PRN. Orders updated, dose administered, effective.
[2022-12-10 07:11] LABS: BASOPHILS # (AUTO) 0.1 X10'3 (0-0.2); BASOPHILS % (AUTO) 0.8 % (0-1); EOSINOPHILS # (AUTO) 0.4 X10'3 (0-0.9); EOSINOPHILS % (AUTO) 6.1 % (0-6); HEMATOCRIT 37.6 % (35.0-45.0); HEMOGLOBIN 12.5 g/dl (12.0-16.0); LYMPHOCYTES # (AUTO) 1.6 X10'3 (1.1-4.8); MEAN CORPUSCULAR HEMOGLOBIN 30.2 PG (27.0-31.0); MEAN CORPUSCULAR HGB CONC 33.3 g/dL (33.0-36.5); MEAN CORPUSCULAR VOLUME 90.9 FL (78-98); MEAN PLATELET VOLUME 8.5 FL (7.4-10.4); MONOCYTES # (AUTO) 0.5 X10'3 (0-0.9); MONOCYTES % (AUTO) 8.3 % (2-12); NEUTROPHILS # (AUTO) 3.8 X10'3 (1.8-7.7); NEUTROPHILS % (AUTO) 59.8 % (42-75); PLATELET COUNT 231 X10'3 (140-440); RED BLOOD COUNT 4.14 X10'6 (4.20-5.60); RED CELL DISTRIBUTION WIDTH 14.9 % (11.5-14.5); WHITE BLOOD COUNT 6.4 X10'3 (4.5-11.0)
[2022-12-10 07:25] LABS: ALANINE AMINOTRANSFERASE 37 U/L (12-78); ALBUMIN 3.1 G/DL (3.4-5.0); ALBUMIN/GLOBULIN RATIO 1.2 (1.1-1.5); ALKALINE PHOSPHATASE 58 IU/L (46-116); ANION GAP 5 (8-16); ASPARTATE AMINO TRANSFERASE 23 U/L (10-37); BILIRUBIN,TOTAL 0.7 MG/DL (0.1-1.0); BLOOD UREA NITROGEN 16 MG/DL (7-18); BUN/CREATININE RATIO 27.1 (10.0-20.0); CHLORIDE 109 MMOL/L (99-107); CREATININE 0.59 MG/DL (0.40-0.90); GLUCOSE 89 MG/DL (70-104); MAGNESIUM 1.2 MG/DL (1.5-2.4); PHOSPHORUS 1.6 MG/DL (2.3-4.5); SODIUM 139 MMOL/L (135-145); TOTAL CARBON DIOXIDE 25.2 MMOL/L (24-32); TOTAL PROTEIN 5.6 G/DL (6.4-8.2); eCRCL 70 ML/MIN; eGFR > 90 ML/MIN
[2022-12-10] MEDS ORDERED: non-formulary drug (Oxybutynin Chloride (Ditropan Xl) 1 TAB) PO SCH (08:00)
[2022-12-10] MEDS ORDERED: metoprolol succinate 25mg (24-HOUR) SR. Tablet PO SCH (08:00)
[2022-12-10] MEDS ORDERED: atorvastatin 10mg tablet PO SCH (08:00)
[2022-12-10] MEDS ORDERED: non-formulary drug (Omeprazole (Prilosec) 1 CAP) PO SCH (08:00)
[2022-12-10] MEDS ORDERED: non-formulary drug (Levothyroxine Sodium 1 TAB) PO SCH (08:00)
[2022-12-10] MEDS: K and/or MAG REPLACEMENT MC SCH ×2 (08:08→20:00)
[2022-12-10] MEDS: apixaban 5mg tablet PO SCH ×2 (08:44→21:12)
[2022-12-10] MEDS: metFORMIN 500mg tablet PO SCH ×2 (08:44→17:36)
[2022-12-10] MEDS: pantoprazole 40mg Tablet.DR PO SCH (08:45)
[2022-12-10] MEDS: atorvastatin 10mg tablet PO SCH (08:45)
[2022-12-10] MEDS: metoprolol succinate 25mg (24-HOUR) SR. Tablet PO SCH (08:45)
[2022-12-10] MEDS: lisinopril 2.5mg tablet PO SCH (08:45)
[2022-12-10] MEDS: oxybutynin 5mg tablet PO SCH ×3 (08:45→21:00)
[2022-12-10] MEDS: levoTHYROXINE 25mcg tablet PO SCH (09:39)
[2022-12-10] MEDS: levoTHYROXINE 112mcg tablet PO SCH (09:39)
[2022-12-10] MEDS ORDERED: potassium phosphate inj 30 MMOL in normal saline 250ml IV soln 250 ML IV ONE (13:30)
[2022-12-10] MEDS: CefTRIAXone/D5W-Rocephin 1gm 50 ML IV SCH (13:30)
[2022-12-10] MEDS ORDERED: magnesium 2GM in 50ml NS 50 ML IV ONE (13:30)
[2022-12-10] MEDS ORDERED: NEUPHOSK PO (14:55)
[2022-12-10] MEDS ORDERED: MAGN500C4 PO (14:55)
[2022-12-10] MEDS: oxyCODONE IR 5mg (immed. release) tablet PO PRN (17:20)
--- NOTE | 2022-12-10 18:30 | NUR ---
Patient in room PCU 3028. I have received report from LAURYN and had the opportunity to ask questions and assume patient care.
--- NOTE | 2022-12-10 18:30 | NUR ---
Patient in room PCU 3028. I have received report from LAURYN and had the opportunity to ask questions and assume patient care.
[2022-12-10] MEDS: insulin glargine (Lantus) pen - multi-dose SQ SCH (21:00)
[2022-12-10] MEDS: ESCITALOPRAM OXALATE 5 MG TABLET PO SCH (21:12)
[2022-12-10] MEDS: amiodarone 200mg tablet PO SCH (21:12)
[2022-12-11 02:00] VITALS: BP 99/62; PULSE 113; RESP 17; TEMP 97.7; O2SAT 98
[2022-12-11] MEDS: oxyCODONE IR 5mg (immed. release) tablet PO PRN (04:51)
--- NOTE | 2022-12-11 06:31 | NUR ---
Problems reprioritized. Patient report given, questions answered & plan of care reviewed with VIVIAN.
--- NOTE | 2022-12-11 06:44 | NUR ---
Patient in room U 3028. I have received report from Beatriz and had the opportunity to ask questions and assume patient care. Addendum: 12/11/22 at 0644 by Pino Pham RN Amended: Links added.
[2022-12-11 07:09] LABS: BASOPHILS # (AUTO) 0.1 X10'3 (0-0.2); BASOPHILS % (AUTO) 0.8 % (0-1); EOSINOPHILS # (AUTO) 0.4 X10'3 (0-0.9); EOSINOPHILS % (AUTO) 6.4 % (0-6); HEMATOCRIT 36.6 % (35.0-45.0); HEMOGLOBIN 12.4 g/dl (12.0-16.0); LYMPHOCYTES # (AUTO) 1.4 X10'3 (1.1-4.8); LYMPHOCYTES % (AUTO) 20.9 % (21-51); MEAN CORPUSCULAR HEMOGLOBIN 30.6 PG (27.0-31.0); MEAN CORPUSCULAR HGB CONC 33.8 g/dL (33.0-36.5); MEAN CORPUSCULAR VOLUME 90.6 FL (78-98); MEAN PLATELET VOLUME 8.2 FL (7.4-10.4); MONOCYTES # (AUTO) 0.4 X10'3 (0-0.9); MONOCYTES % (AUTO) 6.8 % (2-12); NEUTROPHILS # (AUTO) 4.3 X10'3 (1.8-7.7); NEUTROPHILS % (AUTO) 65.1 % (42-75); PLATELET COUNT 238 X10'3 (140-440); RED BLOOD COUNT 4.04 X10'6 (4.20-5.60); RED CELL DISTRIBUTION WIDTH 15.2 % (11.5-14.5); WHITE BLOOD COUNT 6.6 X10'3 (4.5-11.0)
[2022-12-11 07:24] VITALS: BP 101/63; PULSE 114; RESP 12; TEMP 97.5; O2SAT 98
[2022-12-11 07:30] VITALS: RESP 12; O2SAT 98
[2022-12-11] MEDS: atorvastatin 10mg tablet PO SCH (07:34)
[2022-12-11] MEDS: amiodarone 200mg tablet PO SCH (07:34)
[2022-12-11] MEDS: apixaban 5mg tablet PO SCH (07:34)
[2022-12-11] MEDS: levoTHYROXINE 25mcg tablet PO SCH (07:34)
[2022-12-11] MEDS: pantoprazole 40mg Tablet.DR PO SCH (07:34)
[2022-12-11] MEDS: levoTHYROXINE 112mcg tablet PO SCH (07:34)
[2022-12-11] MEDS: metFORMIN 500mg tablet PO SCH (07:34)
[2022-12-11] MEDS: metoprolol succinate 25mg (24-HOUR) SR. Tablet PO SCH (07:34)
[2022-12-11] MEDS: oxybutynin 5mg tablet PO SCH (07:35)
[2022-12-11] MEDS: lisinopril 2.5mg tablet PO SCH (07:35)
[2022-12-11] MEDS: CefTRIAXone/D5W-Rocephin 1gm 50 ML IV SCH (07:37)
[2022-12-11 07:44] LABS: ALANINE AMINOTRANSFERASE 39 U/L (12-78); ALBUMIN/GLOBULIN RATIO 1.1 (1.1-1.5); ALKALINE PHOSPHATASE 56 IU/L (46-116); ANION GAP 8 (8-16); ASPARTATE AMINO TRANSFERASE 25 U/L (10-37); BILIRUBIN,TOTAL 0.5 MG/DL (0.1-1.0); BLOOD UREA NITROGEN 16 MG/DL (7-18); BUN/CREATININE RATIO 30.8 (10.0-20.0); CALCIUM 7.7 MG/DL (8.5-10.1); CHLORIDE 110 MMOL/L (99-107); CREATININE 0.52 MG/DL (0.40-0.90); GLUCOSE 91 MG/DL (70-104); MAGNESIUM 1.7 MG/DL (1.5-2.4); PHOSPHORUS 2.5 MG/DL (2.3-4.5); POTASSIUM 3.8 MMOL/L (3.5-5.1); SODIUM 140 MMOL/L (135-145); TOTAL CARBON DIOXIDE 21.8 MMOL/L (24-32); TOTAL PROTEIN 5.7 G/DL (6.4-8.2); eCRCL 79 ML/MIN; eGFR > 90 ML/MIN
[2022-12-11] MEDS: K and/or MAG REPLACEMENT MC SCH (08:00)
[2022-12-11] MEDS ORDERED: CEFD300C3 PO (10:35)
[2022-12-11] MEDS ORDERED: LACT1CAP74 PO (10:35)
--- NOTE | 2022-12-11 11:20 | NUR ---
iv/tele removed, dc paperwork reviewed, questions answered
[2022-12-11 11:23] VITALS: BP 108/71; PULSE 111; RESP 20; TEMP 97.4; O2SAT 97
== END 2022-12-11 11:50 | disposition home or self-care (01) | DRG 310 ==
LOC: ER 14:18 → ED HOLD 18:32 → EDBEDREQ 21:07 → PCU 3S 22:05
PROVIDERS: ADMIT Family Medicine; ATTEND Family Medicine
DX: R00.1 Bradycardia, unspecified (principal); E83.42 Hypomagnesemia; E03.9 Hypothyroidism, unspecified; E11.9 Type 2 diabetes mellitus without complications; I10 Essential (primary) hypertension; I48.91 Unspecified atrial fibrillation; K21.9 Gastro-esophageal reflux disease without esophagitis; G89.29 Other chronic pain; M19.90 Unspecified osteoarthritis, unspecified site; I48.0 Paroxysmal atrial fibrillation; E87.6 Hypokalemia; E83.39 Other disorders of phosphorus metabolism; F32.A Depression, unspecified; M81.0 Age-related osteoporosis without current pathological fracture; E78.5 Hyperlipidemia, unspecified; R32 Unspecified urinary incontinence; Z98.84 Bariatric surgery status
CPT/HCPCS: 36415; 71045; 80048; 80053; 80162; 81001; 82948; 83735; 83880; 83970; 84100; 84105; 84443; 84484; 85025; 85610; 87081; 93005; 96365; 97116; 97161; 97530; 99285; G0378; J0696; J1815; J3475; J3490; J7040; J7050

== ENCOUNTER 2024-09-28 06:01 | Day surgery (SDC) | payer MEDICARE, OTHER ==
[2024-09-23 12:06] LABS: BASOPHILS # (AUTO) 0.1 X10'3 (0-0.2); BASOPHILS % (AUTO) 1.3 % (0-1); EOSINOPHILS # (AUTO) 0.9 X10'3 (0-0.9); EOSINOPHILS % (AUTO) 12.2 % (0-6); LYMPHOCYTES # (AUTO) 1.8 X10'3 (1.1-4.8); LYMPHOCYTES % (AUTO) 26.5 % (21-51); MEAN CORPUSCULAR HEMOGLOBIN 24.4 PG (27.0-31.0); MEAN CORPUSCULAR HGB CONC 32.2 g/dL (33.0-36.5); MEAN CORPUSCULAR VOLUME 75.7 FL (78-98); MEAN PLATELET VOLUME 8.1 FL (7.4-10.4); MONOCYTES # (AUTO) 0.5 X10'3 (0-0.9); MONOCYTES % (AUTO) 6.8 % (2-12); NEUTROPHILS # (AUTO) 3.7 X10'3 (1.8-7.7); NEUTROPHILS % (AUTO) 53.2 % (42-75); PRE OP HEMATOCRIT 35.1 % (35.0-45.0); PRE OP HEMOGLOBIN 11.3 g/dL (12.0-16.0); PRE OP PLATELET COUNT 339 X10'3 (140-440); RED BLOOD COUNT 4.64 X10'6 (4.20-5.60); RED CELL DISTRIBUTION WIDTH 18.1 % (11.5-14.5)
--- NOTE | 2024-09-23 12:08 | ELECTROCARDIOGRAPH REPORT ---
[facility] Test Date: 2024-09-23 Test Time: 12:04:24 Pat Name: CAROLYNE WATTS Department: [facility]-PRE-OP Patient ID: [facility]-[id number] Room: Gender: F Therapeutic Program Worker: JC : 1945 Requested By: EVERTON FITZPATRICK Order Number: [id number] Reading MD: Dr. EDGARD Lagunas Measurements Intervals [place] Rate: 70 P: 0 OK: 68 QRS: -80 QRSD: 148 T: 79 QT: 436 QTc: 471 Interpretive Statements A-sensed Ventricular-paced complexes No further rhythm analysis attempted due to paced rhythm Electronically Signed On 09-25-2024 19:14:[address] EDGARD Lagunas Please click the below link to view image of tracing.
[2024-09-23 12:21] LABS: ALBUMIN 3.6 G/DL (3.4-5.0); ALBUMIN/GLOBULIN RATIO 1.1 (1.1-1.5); ALKALINE PHOSPHATASE 69 IU/L (46-116); BLOOD UREA NITROGEN 18 MG/DL (7-18); BUN/CREATININE RATIO 22.8 (10.0-20.0); CALCIUM 8.7 MG/DL (8.5-10.1); CHLORIDE 105 MMOL/L (99-107); CREATININE 0.79 MG/DL (0.40-0.90); PRE OP ALT 34 U/L (30-65); PRE OP ANION GAP 8 (8-16); PRE OP AST 33 U/L (10-37); PRE OP BILIRUB, TOTAL 1.1 MG/DL (0.0-1.0); PRE OP GLUCOSE 101 MG/DL (70-104); PRE OP POTASSIUM 4.2 MMOL/L (3.4-5.1); PRE OP SODIUM 139 MMOL/L (135-145); TOTAL CARBON DIOXIDE 25.6 MMOL/L (24-32); TOTAL PROTEIN 6.9 G/DL (6.4-8.2); eGFR 70 ML/MIN
[~2024-09-28] VITALS: Ht 162.6 cm; Wt 72.5 kg
[2024-09-28] VITALS (9 sets, daily range): BP systolic 113–141; BP diastolic 63–77; PULSE 69–91; RESP 12–16; TEMP 98.4; O2SAT 93–100
[2024-09-28] MEDS: ceFAZolin 2gm/dext,iso 50mL 50 ML IV ONE (05:30)
[~2024-09-28 06:01] MED LIST changes: -ALEN70TA15 PO; -AMI200T PO; -DILT120C10 PO; -KRILL OIL PO; -LAN0.125T PO; -LORA-512 PO; +LORA10TA7 PO; -METO-395 PO; +VITA100T5 PO; +[UNRECOGNIZED DRUG - CODE] SQ
[2024-09-28] MEDS: famotidine 20mg tablet PO ONE (06:46)
[2024-09-28] MEDS: ringers solution, lacted 1,000 ML IV SCH (06:46)
[2024-09-28] MEDS: clindamycin 600mg/D5W 50ml 50 ML IV SCH (06:46)
[2024-09-28] MEDS ORDERED: hydrALAZINE 20mg/ml inj. IV PRN (08:05)
[2024-09-28] MEDS ORDERED: proCHLORperazine 10 MG/2 ml inj IV PRN (08:05)
[2024-09-28] MEDS ORDERED: HYDROmorphone/PF 0.2 MG/ML SYRINGE IV PRN ×2 (08:05)
[2024-09-28] MEDS ORDERED: morphine 4 MG/ML inj SYRINge IV PRN ×2 (08:05)
[2024-09-28] MEDS ORDERED: meperidine/PF 25mg/ml syringe IV PRN (08:05)
[2024-09-28] MEDS ORDERED: ringers solution, lacted 1,000 ML IV SCH (08:05)
[2024-09-28] MEDS ORDERED: labetalol 20mg/4ml (5mg/ml) syringe IV PRN (08:05)
[2024-09-28] MEDS ORDERED: acetaminophen 1,000mg/100ml IV 100 ML IV PRN (08:05)
[2024-09-28] MEDS ORDERED: ondansetron/PF 4mg/2ml inj IV PRN (08:05)
[2024-09-28] MEDS ORDERED: BUPIVAcaine/PF 2.5mg/ml (0.25%) 10ml vial ONE (08:44)
[2024-09-28] MEDS ORDERED: LIDOcaine 2% (20mg/ml) 5ml vial ONE (08:44)
[2024-09-28] MEDS ORDERED: midazolam 1 mg/ML 2ml injection ONE (08:59)
[2024-09-28] MEDS ORDERED: fentaNYL /PF 50mcg/ml 5ml ampule ONE (09:00)
[2024-09-28] MEDS: BUPIVAcaine/PF 2.5 mg/ml (0.25%) 30ml vial IJ ONE (09:35)
[2024-09-28] MEDS ORDERED: LIDOcaine 0.5% (5mg/ml) 50ml vial ONE (09:44)
[2024-09-28] MEDS ORDERED: propofol inj 20 ML IV ONE (09:44)
--- NOTE | 2024-09-28 14:10 | OPERATIVE REPORT ---
Operative Report Providers to ~ Date of Procedure: Sep 28, 2024 Pre-Operative Diagnosis: Left thumb carpometacarpal joint arthritis Post-Operative Diagnosis SAME as PRE-Op Procedure Performed Left thumb carpometacarpal joint suspension arthroplasty with trapezium excision and use of anchor line suture anchors Surgeon: Reddy Galarza MD Stock Order Lister None Anesthesiologist: Elvira Lee Type of Anesthesia: Regional Findings: Prosthetics\Implants used: [place] line suspension system Estimated Blood Loss: None Specimen Removed: None Description of Procedure: The patient is a 79-year-old woman with a chronic left thumb carpometacarpal joint arthritis. Surgery is indicated to restore function and reduce pain. Risks and benefits were discussed with the patient. Some of the risks of this procedure include but are not limited to infection, bleeding, nerve or vessel damage, implant failure, and incomplete relief of pain. She agreed to proceed. Regional anesthetic was given in the operating room along with the antibiotics. The arm was prepped and draped in the usual manner. Time-out procedure was observed. A curved incision was made over the dorsal thumb CMC joint. A capsular opening was made over the trapezium which was removed using the sagittal saw and rongeur. K-wire was advanced distally from the base of the 2nd metacarpal and confirmed under fluoro. The wire was removed and the 1st anchor was placed in the base of the 2nd metacarpal. A drill was used to drill up from the base of the metacarpal and into this was placed a 2nd anchor. Position was confirmed under fluoro. The FiberWire suture between the two anchors was pulled tight to complete the SUSPENSION. The suture was then tied off and the long ends were cut. Fluoro imaging showed good suspension of the metacarpal and placement of the anchors. The incision was irrigated and closed in layers. Marcaine was injected and a sterile dressing was applied along with a splint. The tourniquet was released and the hand perfused well and the patient was taken to the recovery room in stable condition. REDDY GALARZA Jr., MD Sep 28, 2024 14:10
== END 2024-09-28 11:25 | disposition home or self-care (01) ==
LOC: PAS 06:01
PROVIDERS: ATTEND Orthopaedic Surgery Hand Surgery
DX: M18.12 Unilateral primary osteoarthritis of first carpometacarpal joint, left hand (principal); I48.91 Unspecified atrial fibrillation; E11.9 Type 2 diabetes mellitus without complications; F32.A Depression, unspecified; E03.9 Hypothyroidism, unspecified; E78.5 Hyperlipidemia, unspecified; Z87.442 Personal history of urinary calculi; Z79.01 Long term (current) use of anticoagulants; Z79.899 Other long term (current) drug therapy; Z90.49 Acquired absence of other specified parts of digestive tract; Z98.890 Other specified postprocedural states; Z87.891 Personal history of nicotine dependence; Z88.6 Allergy status to analgesic agent; Z88.0 Allergy status to penicillin; Z98.84 Bariatric surgery status; Z88.8 Allergy status to other drugs, medicaments and biological substances; M19.032 Primary osteoarthritis, left wrist; Z96.641 Presence of right artificial hip joint; Z96.652 Presence of left artificial knee joint; M81.0 Age-related osteoporosis without current pathological fracture
CPT/HCPCS: 25448; 36415; 80053; 82948; 85025; 93005; A4215; A4618; A6449; A7000; C1713; J2003; J2250; J2704; J3010; J3490; J7030; J7120; Z7506; Z7508; Z7512; Z7610